=== PATIENT | female | born 1965 | race Caucasian/White ===

== ENCOUNTER → 2019-06-09 10:49 | Outpatient (BNVA) | payer MEDICARE, OTHER, SELFPAY | PROVIDERS: Visit Provider Counselor Professional | DX: F43.12 Post-traumatic stress disorder, chronic (principal); F41.0 Panic disorder [episodic paroxysmal anxiety] | CPT/HCPCS: 90834 ==

== ENCOUNTER → 2019-06-23 10:26 | Outpatient (BNVA) | payer MEDICARE, OTHER, SELFPAY | PROVIDERS: Visit Provider Counselor Professional | DX: F43.12 Post-traumatic stress disorder, chronic (principal); F41.0 Panic disorder [episodic paroxysmal anxiety] | CPT/HCPCS: 90834 ==

== ENCOUNTER → 2019-07-07 09:47 | Outpatient (BNVA) | payer MEDICARE, OTHER, SELFPAY | PROVIDERS: Visit Provider Counselor Professional | DX: F41.1 Generalized anxiety disorder (principal); F43.12 Post-traumatic stress disorder, chronic | CPT/HCPCS: 90834 ==

== ENCOUNTER → 2019-07-21 14:58 | Outpatient (BNVA) | payer MEDICARE, OTHER, SELFPAY | PROVIDERS: Visit Provider Psychiatry & Neurology Psychiatry | DX: G47.00 Insomnia, unspecified (principal); F43.12 Post-traumatic stress disorder, chronic; F41.1 Generalized anxiety disorder; F33.2 Major depressive disorder, recurrent severe without psychotic features | CPT/HCPCS: 99204 ==

== ENCOUNTER → 2019-10-09 10:42 | Outpatient (BNVA) | payer MEDICARE, OTHER, SELFPAY | PROVIDERS: Visit Provider Family Medicine | DX: R53.83 Other fatigue (principal); D51.0 Vitamin B12 deficiency anemia due to intrinsic factor deficiency; D58.2 Other hemoglobinopathies | CPT/HCPCS: 80053; 82607; 85007; 85027 ==

== ENCOUNTER → 2019-10-13 07:30 | Outpatient (BNVA) | payer MEDICARE, OTHER, SELFPAY | PROVIDERS: Visit Provider Psychiatry & Neurology Psychiatry | DX: F60.3 Borderline personality disorder (principal); F41.1 Generalized anxiety disorder; F43.12 Post-traumatic stress disorder, chronic; F33.2 Major depressive disorder, recurrent severe without psychotic features | CPT/HCPCS: 99213 ==

== ENCOUNTER → 2020-04-28 10:14 | Outpatient (BNVA) | payer MEDICARE, OTHER, SELFPAY | PROVIDERS: PCP Family Medicine; Visit Provider Family Medicine | DX: K90.9 Intestinal malabsorption, unspecified (principal); I10 Essential (primary) hypertension; D51.0 Vitamin B12 deficiency anemia due to intrinsic factor deficiency; E53.8 Deficiency of other specified B group vitamins; M32.9 Systemic lupus erythematosus, unspecified; R19.7 Diarrhea, unspecified; R53.83 Other fatigue; D58.2 Other hemoglobinopathies; S80.11XS Contusion of right lower leg, sequela | CPT/HCPCS: 80053; 80061; 82607; 85007; 85027 ==

== ENCOUNTER → 2020-10-27 11:14 | Outpatient (BNVA) | payer MEDICARE, OTHER, SELFPAY | PROVIDERS: PCP Family Medicine; Visit Provider Family Medicine | DX: I10 Essential (primary) hypertension (principal); K90.9 Intestinal malabsorption, unspecified; M32.9 Systemic lupus erythematosus, unspecified; J30.2 Other seasonal allergic rhinitis; J44.9 Chronic obstructive pulmonary disease, unspecified; D51.0 Vitamin B12 deficiency anemia due to intrinsic factor deficiency; R53.83 Other fatigue; E55.9 Vitamin D deficiency, unspecified | CPT/HCPCS: 80053; 82607; 82652; 85025 ==

== ENCOUNTER → 2021-02-18 14:25 | Outpatient (BNVA) | payer MEDICARE, OTHER, SELFPAY | PROVIDERS: PCP Family Medicine; Visit Provider Nurse Practitioner Family | DX: Z20.822 Contact with and (suspected) exposure to COVID-19 (principal) | CPT/HCPCS: 87426; 87635 ==

== ENCOUNTER → 2021-07-06 09:12 | Outpatient (BNVA) | payer MEDICARE, OTHER, SELFPAY | PROVIDERS: PCP Family Medicine; Visit Provider Family Medicine | DX: M25.511 Pain in right shoulder (principal); M17.11 Unilateral primary osteoarthritis, right knee; I10 Essential (primary) hypertension; M32.9 Systemic lupus erythematosus, unspecified; M10.9 Gout, unspecified; R53.83 Other fatigue; D51.0 Vitamin B12 deficiency anemia due to intrinsic factor deficiency | CPT/HCPCS: 73030; 73562; 80048; 80061; 82607; 84550; 85025; 85651; 86140 ==

== ENCOUNTER → 2021-07-21 10:57 | Outpatient (BNVA) | payer MEDICARE, OTHER, SELFPAY | PROVIDERS: PCP Family Medicine; Visit Provider Family Medicine | DX: D72.819 Decreased white blood cell count, unspecified (principal); R71.8 Other abnormality of red blood cells; R79.89 Other specified abnormal findings of blood chemistry | CPT/HCPCS: 80503; 82310; 83970; 85007; 85027 ==

== ENCOUNTER 2021-08-09 13:12 | Outpatient (CLI) | payer MEDICARE, OTHER, SELFPAY ==
[2021-08-09 14:18] LABS: Basophils % 0.2 %; Eosinophils % 0.9 %; Hematocrit 43.4 % (37.0-47.0); Hemoglobin 14.5 g/dL (11.5-15.3); Lymphocytes # 1.9 10^3/uL (0.8-4.8); Lymphocytes % 41.6 %; Mean Corpuscular HGB Conc 33.4 g/dL (30.0-36.0); Mean Corpuscular Hemoglobin 30.5 pg (28.0-34.0); Mean Corpuscular Volume 91.2 fl (81-99); Mean Platelet Volume 10.1 fL (7.4-10.4); Monocytes # 0.2 10^3/uL (0.2-0.9); Monocytes % 5.2 %; Neutrophils # 2.42 10^3/uL (1.8-7.7); Neutrophils % 51.9 %; Nucleated Red Blood Cells % 0 %; Platelet Count 144 10^3/cmm (130-400); Red Blood Count 4.76 10^6/uL (4.1-5.3); White Blood Count 4.7 10^3/uL (4.0-10.0)
--- NOTE | 2021-08-09 16:06 | ONC CON_ITS ---
Dr. Foote New Patient Note Patient: Priya Marte Unit #: [id number]: [id number] Dicatated By: Citlaly Foote M.D.Date of Visit: Aug 09, 2021 Onc MED New Patient/Consult Referring Physician: Dr. Mar Carpenter M.D. History of Present Illness: Mrs. Priya Marte, is a 56-year-old female with a history of lupus, for which she is on Plaquenil for over 10 years., Raynaud's disease, adult ADHD, depression, history of pernicious anemia,, hyperparathyroidism, underwent routine follow-up on July 21, 2021 her lab work-up showed white blood count 3.8 hemoglobin 14.5 hematocrit 44.2 platelets 124,000 with a normal differential, patient was referred to hematology clinic for evaluation Patient denies any night sweats, denies any recurrent fever, denies any weight loss, denies any peripheral lymphadenopathy or abdominal fullness. Patient denies any history of alcohol use or smoking. Her past surgical history significant for colectomy for chronic constipation due to decreased peristalsis, Patient denies any recurrent fevers denies any recurrent infections. Denies any weight loss. Past Medical History: Ms. Murray medical history consists of adult adhd, anxiety, chronic migraine, chronic nausea, depression, diarrhea due to malabsorption, hypertension, insomnia, pernicious anemia, Raynaud's disease, systemic Lupus erythematosus, and vitamin D deficiency. Past Surgical History: Ms. Murray surgical/procedural history consists of abdominoplasty, appendectomy, breast augmentation, caesarean section, cholecystectomy, colectomy, cyst removed from ovaries, hysterectomy, hysterectomy/bilateral salpingectomy-oophorectomy, mesh removal, MOH'S procedure, omenectomy, rectocele with mesh, total colectomy, Covid vaccine #3 - Moderna in 2020, Covid vaccine #2 - Moderna in 2020, and Covid vaccine #1 - Moderna in 2020. Medications: Acyclovir 1 Tablet (of 400 mg) Oral b.i.d., Ambien CR 1 Tablet (of 12.5 mg) Tablet, controlled release Oral at bedtime, Cardizem 1 Tablet (of 60 mg) Oral four times a day, Cyanocobalamin 1,000 mcg (of 1000 mcg/mL) Injection, Imodium A-D 1 Tablet (of 2 mg) Oral q 4 hours, Imodium A-D 1 Tablet (of 2 mg) Capsule Oral four times a day PRN, Lisinopril 1 Tablet (of 40 mg) Oral daily, Lomotil 1 Tablet (of 2.5-0.025 mg) Oral four times a day PRN, Montelukast Sodium 1 Tablet (of 10 mg) Oral daily, Naproxen Sodium 1 Tablet (of 220 mg) Oral b.i.d. PRN, Ondansetron HCl 1 Tablet (of 4 mg) Oral q 6 hours PRN, Plaquenil (200 mg) Tablet Oral Take as Directed, SEROquel XR 1 Tablet (of 200 mg) Tablet SR 24 HR Oral at bedtime, Sertraline HCl 1 Capsule (of 200 mg) Oral b.i.d., SUMAtriptan Succinate 1 Tablet (of 100 mg) Oral q 2 hours PRN, Tylenol Extra Strength 1 Tablet (of 500 mg) Oral PRN, Vitamin B Complex 1 Tablet Oral daily, Vitamin B6 1 Tablet Oral daily, Vyvanse 1 Tablet (of 50 mg) Capsule Oral daily Allergies: Morphine Sulfate and Sulfa Antibiotics. Social History: Ms. Marte is legally . Ms. Marte has never smoked. She has no history of drinking. Family History: Ms. Marte's mother is alive: breast cancer. Ms. Marte's father at age 60: chronic obstructive pulmonary disease, and stroke, and heart disease. Review Of Symptoms: Review of Systems is not available for this patient. Vital Signs: Performed on Aug 09, 2021 14:59: 63.00 in, 174/98 mm(hg) (HIGH), Performed on Aug 09, 2021 14:59: 8, 7, 22.07, 1.58 sq.m, 99 %, 71 /min, 16 /min, 97.9 F (LOW), and 124.6 lbs (HIGH). Performance Status: 0 - Fully active, able to carry on all predisease activities without restrictions. (ECOG) Physical Examination: ENMT - No mouth sores, no thrush, no jaundice, no cervical lymphadenopathy, Respiratory - Lungs are clear to auscultation, Cardiovascular - Regular rate and rhythm of heart, Abdomen - Soft, bowel sounds present, Extremities - No visible edema. Lab/Imaging: Most recent lab results are not available for this patient. Impression: History of fluctuating thrombocytopenia and leukopenia with normal hemoglobin, etiology could be multifactorial including medications like Plaquenil, ASIM inhibitors or could be nutritional, patient has history of B12 deficiency or could be primary bone marrow disorder like MDS but less likely SLE, on Plaquenil for over 10 years Hypertension, on lisinopril, diltiazem Depression Plan: Discussed with patient regarding her labs from today showed white blood count 4.7k normal being 4-10,000, hemoglobin 14.5 hematocrit 43.4 platelets 144,000 normal being 130-400, with normal differential Clinically, patient doing well with no new signs symptom suggestive of recurrent infections or gross bleeding, her repeat CBC done today showed normal values e.g. resolution of mild thrombocytopenia and leukopenia seen on labs done on July 11, 2021, at that time her white blood count was 3.8, normal being 4-10,000 and today it improved to 4.7, platelet count was 124,000 on July 21, 2021 and today gone up to 144,000 which is within normal range, hemoglobin remained in normal range. Etiology for fluctuating bicytopenia could be due to medications like Plaquenil or ASIM inhibitor's or nutrition diet history of B12 deficiency and patient also has history of colectomy, as per patient, for chronic constipation due to decreased peristalsis As, mentioned above, repeat CBC done today shows normal values, no further work-up recommended at this point rather observation. Patient will return to clinic in 1 month with CBC. Signed By: Citlaly Foote M.D. <<Signature on File>>
== END 2021-08-09 13:13 | disposition home or self-care (01) ==
LOC: ONCMED 13:25
PROVIDERS: PCP Family Medicine; Visit Provider Internal Medicine Hematology & Oncology
DX: M32.9 Systemic lupus erythematosus, unspecified (principal); I10 Essential (primary) hypertension; F32.A Depression, unspecified; D84.9 Immunodeficiency, unspecified; Z79.899 Other long term (current) drug therapy
CPT/HCPCS: 36415; 85025; 99204

== ENCOUNTER → 2021-08-31 15:17 | Outpatient (BNVA) | payer MEDICARE, OTHER, SELFPAY | PROVIDERS: PCP Family Medicine; Visit Provider Emergency Medicine | DX: R31.9 Hematuria, unspecified (principal); R60.9 Edema, unspecified | CPT/HCPCS: 81000; 87086 ==

== ENCOUNTER 2021-09-22 11:27 | Oncology outpatient (recurring) (ONCR) | payer MEDICARE, OTHER, SELFPAY ==
[2021-09-22 12:50] LABS: Basophils % 0.4 %; Eosinophils # 0.1 10^3/uL (0.0-0.8); Eosinophils % 1.7 %; Hemoglobin 14.6 g/dL (11.5-15.3); Lymphocytes # 2.3 10^3/uL (0.8-4.8); Lymphocytes % 50.1 %; Mean Corpuscular HGB Conc 33.2 g/dL (30.0-36.0); Mean Corpuscular Hemoglobin 30.7 pg (28.0-34.0); Mean Corpuscular Volume 92.6 fl (81-99); Mean Platelet Volume 10.3 fL (7.4-10.4); Monocytes # 0.3 10^3/uL (0.2-0.9); Monocytes % 7.3 %; Neutrophils # 1.86 10^3/uL (1.8-7.7); Neutrophils % 40.3 %; Nucleated Red Blood Cells % 0 %; Platelet Count 140 10^3/cmm (130-400); Red Blood Count 4.75 10^6/uL (4.1-5.3); Red Cell Distribution Width 11.9 % (12.1-15.1); White Blood Count 4.6 10^3/uL (4.0-10.0)
== END 2021-10-20 23:59 | disposition home or self-care (01) ==
LOC: ONCMED 11:28
PROVIDERS: PCP Family Medicine; Visit Provider Internal Medicine Hematology & Oncology
DX: D69.6 Thrombocytopenia, unspecified (principal); M32.9 Systemic lupus erythematosus, unspecified; I73.00 Raynaud's syndrome without gangrene; F90.9 Attention-deficit hyperactivity disorder, unspecified type; D51.0 Vitamin B12 deficiency anemia due to intrinsic factor deficiency; F33.2 Major depressive disorder, recurrent severe without psychotic features; I10 Essential (primary) hypertension; E21.3 Hyperparathyroidism, unspecified; Z79.899 Other long term (current) drug therapy
CPT/HCPCS: 85025; 99214

== ENCOUNTER → 2021-10-12 10:04 | Outpatient (BNVA) | payer MEDICARE, OTHER, SELFPAY | PROVIDERS: PCP Family Medicine; Visit Provider Family Medicine | DX: D51.0 Vitamin B12 deficiency anemia due to intrinsic factor deficiency (principal); R53.82 Chronic fatigue, unspecified; E55.9 Vitamin D deficiency, unspecified; R53.83 Other fatigue; Z87.440 Personal history of urinary (tract) infections; W57.XXXA Bitten or stung by nonvenomous insect and other nonvenomous arthropods, initial encounter; R79.89 Other specified abnormal findings of blood chemistry; K90.9 Intestinal malabsorption, unspecified; E83.52 Hypercalcemia | CPT/HCPCS: 80053; 81003; 82310; 82340; 82607; 82652; 83970; 84443; 86618; 86666; 86757 ==

== ENCOUNTER → 2021-10-18 11:34 | Outpatient (BNVA) | payer MEDICARE, OTHER, SELFPAY | PROVIDERS: PCP Family Medicine; Visit Provider Family Medicine | DX: D51.0 Vitamin B12 deficiency anemia due to intrinsic factor deficiency (principal); B00.9 Herpesviral infection, unspecified; K90.9 Intestinal malabsorption, unspecified; J30.2 Other seasonal allergic rhinitis; G43.909 Migraine, unspecified, not intractable, without status migrainosus; R79.89 Other specified abnormal findings of blood chemistry; R53.83 Other fatigue; E83.52 Hypercalcemia; Z87.440 Personal history of urinary (tract) infections; R53.82 Chronic fatigue, unspecified | CPT/HCPCS: 86003; 86008 ==

== ENCOUNTER → 2022-04-18 09:03 | Outpatient (BNVA) | payer MEDICARE, SELFPAY | PROVIDERS: PCP Family Medicine; Visit Provider Family Medicine | DX: E55.9 Vitamin D deficiency, unspecified (principal); D69.6 Thrombocytopenia, unspecified; R79.89 Other specified abnormal findings of blood chemistry; R53.83 Other fatigue; D51.0 Vitamin B12 deficiency anemia due to intrinsic factor deficiency; M19.90 Unspecified osteoarthritis, unspecified site; I10 Essential (primary) hypertension | CPT/HCPCS: 80053; 82310; 82607; 82652; 83970; 84550; 85025 ==

== ENCOUNTER → 2023-02-21 10:39 | Outpatient (BNVA) | payer MEDICARE, SELFPAY | PROVIDERS: PCP Family Medicine; Visit Provider Family Medicine | DX: E55.9 Vitamin D deficiency, unspecified (principal); R53.83 Other fatigue; R79.89 Other specified abnormal findings of blood chemistry; D69.6 Thrombocytopenia, unspecified; I10 Essential (primary) hypertension; D51.0 Vitamin B12 deficiency anemia due to intrinsic factor deficiency; R39.9 Unspecified symptoms and signs involving the genitourinary system; Z13.220 Encounter for screening for lipoid disorders; Z13.6 Encounter for screening for cardiovascular disorders | CPT/HCPCS: 80053; 80061; 81000; 82310; 82607; 82652; 83970; 85025; 87086 ==

== ENCOUNTER → 2023-08-28 13:42 | Outpatient (BNVA) | payer MEDICARE, OTHER, SELFPAY | PROVIDERS: PCP Family Medicine; Visit Provider Family Medicine | DX: R39.9 Unspecified symptoms and signs involving the genitourinary system (principal) | CPT/HCPCS: 81000 ==

== ENCOUNTER → 2024-03-18 15:08 | Outpatient (BNVA) | payer MEDICARE, OTHER, SELFPAY | PROVIDERS: PCP Family Medicine; Visit Provider Family Medicine | DX: E55.9 Vitamin D deficiency, unspecified (principal); R53.83 Other fatigue; D51.0 Vitamin B12 deficiency anemia due to intrinsic factor deficiency; Z51.81 Encounter for therapeutic drug level monitoring; R79.89 Other specified abnormal findings of blood chemistry; I10 Essential (primary) hypertension; D69.6 Thrombocytopenia, unspecified | CPT/HCPCS: 80053; 80061; 82310; 82607; 82652; 83970; 84443; 85025 ==

== ENCOUNTER → 2024-10-28 09:02 | Outpatient (BNVA) | payer MEDICARE, OTHER, SELFPAY | PROVIDERS: PCP Family Medicine; Visit Provider Family Medicine | DX: I10 Essential (primary) hypertension (principal); D69.6 Thrombocytopenia, unspecified; R79.89 Other specified abnormal findings of blood chemistry; D51.0 Vitamin B12 deficiency anemia due to intrinsic factor deficiency; E03.9 Hypothyroidism, unspecified; E55.9 Vitamin D deficiency, unspecified; R53.83 Other fatigue | CPT/HCPCS: 80053; 80061; 82310; 82607; 82652; 83970; 84443; 85025 ==